=== PATIENT | male | born 1975 | race Caucasian/White ===

== ENCOUNTER 2023-02-12 15:49 | Emergency (ER) | payer OTHER ==
[~2023-02-12] VITALS: Ht 175.3 cm; Wt 88.5 kg
[2023-02-12] MEDS ORDERED: KETOROLAC 60 MG VIAL (30MG/ML) IM ONE (18:00)
[2023-02-12] MEDS ORDERED: ACET-2079 PO (19:00)
[2023-02-12] MEDS ORDERED: IBUP-2077 PO (19:00)
[2023-02-12 19:16] VITALS: BP 132/78; PULSE 80; RESP 20; O2SAT 99
== END 2023-02-12 19:21 | disposition home or self-care (01) ==
LOC: EDH 15:49
DX: S62.91XA Unspecified fracture of right hand, initial encounter for closed fracture (principal); Z79.899 Other long term (current) drug therapy; Z98.890 Other specified postprocedural states; X58.XXXA Exposure to other specified factors, initial encounter; Y93.89 Activity, other specified; Y92.89 Other specified places as the place of occurrence of the external cause; Y99.8 Other external cause status
CPT/HCPCS: 99284; 73130; 73110; 29125; 96372; J1885